=== PATIENT | female | born 1980 | race Caucasian/White ===

== ENCOUNTER 2019-09-19 18:25 | Emergency (ER) | payer MEDICAID ==
[~2019-09-19] VITALS: Ht 165.1 cm; Wt 82.1 kg
[2019-09-19 18:31] VITALS: Ht 165.1 cm; Wt 82.1 kg
[2019-09-19 19:24] LABS: BASOPHIL % 0.8 % (0-2); PLATELET COUNT 214 x10^3mcL (130-400); RED CELL DISTRIBUTION WIDTH 14.3 % (11.5-14.5)
[2019-09-19 19:29] LABS: CALCIUM 8.5 mg/dL (8.5-10.1); CARBON DIOXIDE 27.3 mmol/L (21-32); CHLORIDE SERUM 101 mmol/L (98-107); CREATININE SERUM 0.8 mg/dL (0.6-1.0); GFR1 > 60 mL/min; GLUCOSE SERUM 100 mg/dL (74-106); POTASSIUM SERUM 3.6 mmol/L (3.5-5.1); SODIUM SERUM 136 mmol/L (136-145)
[2019-09-19 19:35] LABS: ALBUMIN 3.9 g/dL (3.4-5.0); ALKALINE PHOSPHATASE 42 U/L (46-116); ALT/SGPT 13 U/L (14-59); AST/SGOT 9 U/L (15-37); BILIRUBIN TOTAL 0.3 mg/dL (0.20-1.00); LIPASE 191 IU/L (73-393); TOTAL PROTEIN, SERUM 7.1 g/dL (6.4-8.2)
[2019-09-19 23:12] VITALS: BP 99/64
== END 2019-09-19 23:12 | disposition home or self-care (01) ==
LOC: ED 18:25
PROVIDERS: Specialist
DX: K43.9 Ventral hernia without obstruction or gangrene (principal); K42.9 Umbilical hernia without obstruction or gangrene